=== PATIENT | female | born 1955 | race Caucasian/White ===

== ENCOUNTER 2019-06-06 11:35 | Day surgery (SDC) | payer BC ==
[~2019-06-06] VITALS: Ht 162.6 cm; Wt 68.3 kg
[~2019-06-06 11:35] MED LIST: Activella 0.5-1 EACH PO; Diflucan50 MG PO; Estrace Vagin42.5 GM; Flovent Diskus50 MCG INH; LEVSOD75 PO; LOSA50 PO; VITAMIN D32000 UNI3 PO; Xopenex Hfa15 GM INH; [UNRECOGNIZED DRUG - OTHER]
--- NOTE | 2019-06-06 13:25 | NUR ---
06/06/19 1325 Hodan Saldivar 3CC SPOT MARKER INJECTED INTO TRANSVERSE COLON EDEMA
== END 2019-06-06 14:03 | disposition home or self-care (01) ==
LOC: ORSCSDS 11:35
PROVIDERS: Student in an Organized Health Care Education/Training Program
PROC: 3E0H8GC Introduction of Other Therapeutic Substance into Lower GI, Via Natural or Artificial Opening Endoscopic (ICD-10-PCS; principal; 2019-06-06 13:30)
PROC: 0DBL8ZX Excision of Transverse Colon, Via Natural or Artificial Opening Endoscopic, Diagnostic (ICD-10-PCS; principal; 2019-06-06 13:30)
PROC: 0DBK8ZX Excision of Ascending Colon, Via Natural or Artificial Opening Endoscopic, Diagnostic (ICD-10-PCS; principal; 2019-06-06 13:30)
DX: Z12.11 Encounter for screening for malignant neoplasm of colon (principal); Z80.0 Family history of malignant neoplasm of digestive organs; D12.2 Benign neoplasm of ascending colon; D12.3 Benign neoplasm of transverse colon; K57.30 Diverticulosis of large intestine without perforation or abscess without bleeding; K64.8 Other hemorrhoids; K62.89 Other specified diseases of anus and rectum; I10 Essential (primary) hypertension; Z79.899 Other long term (current) drug therapy
CPT/HCPCS: 88305; J2704; J7120

== ENCOUNTER → 2019-06-27 | Outpatient (CLI) | payer BC ==
[2019-06-29 15:09] LABS: HPV 16 Negative (Negative); HPV 18 Negative (Negative); HPV OTHER HR TYPES Negative (Negative)
== END ==
LOC: LAB SHORT 18:01 → LAB 18:01
PROVIDERS: Obstetrics & Gynecology
DX: Z12.4 Encounter for screening for malignant neoplasm of cervix (principal)
CPT/HCPCS: 87624; G0123

== ENCOUNTER → 2019-11-07 | Outpatient (CLI) | payer BC, OTHER | END | disposition home or self-care (01) | LOC: LAB EV 09:44 → LAB SHORT 09:44 | DX: B34.9 Viral infection, unspecified (principal); Z20.828 Contact with and (suspected) exposure to other viral communicable diseases | CPT/HCPCS: U0003 ==

== ENCOUNTER → 2023-05-19 | Outpatient (CLI) | payer OTHER ==
[2023-05-27 16:02] LABS: HPV GENOTYPE 16 Not Detected; HPV GENOTYPE 18 Not Detected; HPV HIGH RISK Not Detected; HPV SOURCE Cervical
== END ==
LOC: LAB SHORT 15:49 → LAB EV 15:49
PROVIDERS: Nurse Practitioner Women's Health
DX: Z01.419 Encounter for gynecological examination (general) (routine) without abnormal findings (principal); Z11.51 Encounter for screening for human papillomavirus (HPV); Z91.89 Other specified personal risk factors, not elsewhere classified
CPT/HCPCS: 87624; G0123

== ENCOUNTER 2024-07-27 09:19 | Day surgery (SDC) | payer OTHER ==
[~2024-07-27] VITALS: Ht 162.6 cm; Wt 68.0 kg
[~2024-07-27 09:19] MED LIST changes: +Lactated Ringer's 1,000 ML IV ONE; +propofoL 50 ML IV ONE
[2024-07-27] MEDS ORDERED: ATOR10 (10:10)
[2024-07-27] MEDS ORDERED: EFUDEX40 GM (10:13)
[2024-07-27] MEDS ORDERED: Lactated Ringer's 1,000 ML IV ONE (10:44)
[2024-07-27 12:46] VITALS: BP 104/80
== END 2024-07-27 12:41 | disposition home or self-care (01) ==
LOC: ORSCSDS 09:19
PROVIDERS: Internal Medicine Gastroenterology
PROC: 0DJD8ZZ Inspection of Lower Intestinal Tract, Via Natural or Artificial Opening Endoscopic (ICD-10-PCS; principal; 2024-07-27 11:00)
DX: Z12.11 Encounter for screening for malignant neoplasm of colon (principal); Z80.0 Family history of malignant neoplasm of digestive organs; K57.30 Diverticulosis of large intestine without perforation or abscess without bleeding; I10 Essential (primary) hypertension; E78.5 Hyperlipidemia, unspecified; Z79.899 Other long term (current) drug therapy
CPT/HCPCS: J2704; J7120

== ENCOUNTER → 2024-08-15 | Outpatient (CLI) | payer OTHER ==
[~2024-08-15] MED LIST changes: +ATOR10; +EFUDEX40 GM; -Lactated Ringer's 1,000 ML IV ONE; -propofoL 50 ML IV ONE
== END | disposition home or self-care (01) ==
LOC: LAB SHORT 09:28 → LAB 09:28
DX: Z12.4 Encounter for screening for malignant neoplasm of cervix (principal); Z11.51 Encounter for screening for human papillomavirus (HPV); Z91.89 Other specified personal risk factors, not elsewhere classified
CPT/HCPCS: G0123